=== PATIENT | female | born 1935 | race Caucasian/White ===

== ENCOUNTER 2017-03-28 18:17 | Inpatient (IN) | payer MEDICARE ==
[~2017-03-28] VITALS: Ht 162.6 cm; Wt 62.1 kg
--- NOTE | 2017-03-28 18:40 | NUR ---
BB DAUGHTER FOR COUGH X YESTERDAY, FEVER, PT WAS NOTED CONFUSED BY DAUGHTER THIS MORNING. PATIENT IS A/OX 2. BREATHING EVEN AND UNLABORED. NO SOB. VITALS STABLE. HAS FEVER 101.9. NO DISTRESS NOTED. SAFETY AND COMFORT MEASURES IN PLACE. AWAITING MD ORDERS.
[2017-03-28] MEDS ORDERED: DONE5TAB34 PO (18:48)
[2017-03-28] MEDS ORDERED: ESCI20TA PO (18:48)
[2017-03-28] MEDS ORDERED: CA C1TAB97 PO (18:48)
[2017-03-28] MEDS ORDERED: ASCO500T9 PO (18:48)
[2017-03-28] MEDS ORDERED: CRAN425C6 PO (18:48)
[2017-03-28] MEDS ORDERED: ASPI-1169 PO (18:48)
[2017-03-28] MEDS ORDERED: SIMV20TA6 PO (18:48)
[2017-03-28] MEDS ORDERED: FLUD0.1T PO (18:48)
[2017-03-28] MEDS ORDERED: MAGN250T10 PO (18:48)
--- NOTE | 2017-03-28 18:50 | NUR ---
NEW IV STARTED ON RFA, 20 G. BLOOD DRAWN AND SENT TO LAB. INFLUENZA SWAB OBTAINED AND SENT TO LAB ALSO.
[2017-03-28] MEDS ORDERED: AZTREONAM 2 G in IV NS 0.9% 100 ML IV ONE (19:00)
[2017-03-28] MEDS ORDERED: OSELTAMIVIR PHOSPHATE 75 MG CAPSULE PO ONE (19:00)
[2017-03-28] MEDS ORDERED: IV NS 0.9% 1,000 ML BAG IV ONE (19:00)
[2017-03-28] MEDS ORDERED: ACETAMINOPHEN 325 MG TABLET PO ONE (19:00)
[2017-03-28] MEDS ORDERED: VANCOMYCIN 1 GM in IV D5W 250 ML IV ONE (19:00)
[2017-03-28] MEDS ORDERED: ACETAMINOPHEN 325 MG TABLET ONE (19:12)
[2017-03-28] MEDS ORDERED: OSELTAMIVIR PHOSPHATE 75 MG CAPSULE ONE (19:12)
[2017-03-28 19:14] LABS: BASOPHILS % (AUTO) 0.1 % (0.0-2.0); EOSINOPHILS % (AUTO) 0.4 % (0.0-6.0); HEMATOCRIT 42 % (33-45); HEMOGLOBIN 14.6 g/dL (11.5-14.8); LYMPHOCYTES # (AUTO) 0.6 /CMM (0.8-4.8); LYMPHOCYTES % (AUTO) 10.2 % (20.0-44.0); MEAN CORPUSCULAR HEMOGLOBIN 31 PG (26.0-33.0); MEAN CORPUSCULAR HGB CONC 34 g/dl (31.0-36.0); MEAN CORPUSCULAR VOLUME 89 fL (82-100); MONOCYTES # (AUTO) 0.9 /CMM (0.1-1.30); MONOCYTES % (AUTO) 14.7 % (2.0-12.0); NEUTROPHILS # (AUTO) 4.6 /CMM (1.8-8.9); NEUTROPHILS % (AUTO) 74.6 % (43.0-81.0); PLATELET COUNT (AUTO) 143 /CMM (150-450); RDW COEFFICIENT OF VARIATION 13.7 (11.5-15.0); RED BLOOD CELL COUNT(AUTO) 4.75 MIL/uL (4.0-5.2); WHITE BLOOD COUNT (AUTO) 6.1 K/uL (4.3-11.0)
--- NOTE | 2017-03-28 19:15 | NUR ---
REPORT RECEIVED FROM PEDRITO THOMAS FOR ANTONIETTA.
--- NOTE | 2017-03-28 19:20 | NUR ---
Mario joshi in ED - 03/28/17 at 1935 by ALBERTA 16 FR F/C INSERTED USING PARTS INSPECTOR, 100ML CLEAR URINE OBTAINED AND SENT TO THE LAB.
[2017-03-28 19:23] LABS: INR 0.95 (0.87-1.13); PROTHROMBIN TIME 9.9 SECS (9.5-12.7)
[2017-03-28 19:24] LABS: CALCIUM, SERUM 8.9 mg/dL (8.5-10.1); CARBON DIOXIDE 27 mmol/L (21-32); CHLORIDE 104 mmol/L (98-107); CREATININE 0.9 mg/dL (0.6-1.3); GLUCOSE 117 mg/dL (74-106); POTASSIUM 3.8 mmol/L (3.5-5.1); SODIUM SERUM 138 mmol/L (136-145); UREA NITROGEN, BLOOD 14 mg/dL (7-18)
--- NOTE | 2017-03-28 19:25 | NUR ---
PATIENT MEDICATED PER MD ORDERS.
[2017-03-28 19:29] LABS: ALANINE AMINOTRANSFERASE 42 U/L (12-78); ALBUMIN 3.6 g/dL (3.4-5.0); ALKALINE PHOSPHATASE 82 U/L (46-116); ASPARTATE AMINOTRANSFERASE 41 U/L (15-37); BILIRUBIN,DIRECT 0.1 mg/dL (0.0-0.2); BILIRUBIN,TOTAL 0.5 mg/dL (0.2-1.0); TOTAL PROTEIN, SERUM 6.6 g/dL (6.4-8.2)
--- NOTE | 2017-03-28 19:33 | NUR ---
16 FR felipe catheter inserted per sterile protocal. Immediate output 50 ML of urine, yellow and clear.
[2017-03-28 19:34] LABS: TROPONIN I < 0.017 ng/mL (0.00-0.056)
[2017-03-28] MEDS ORDERED: AZTREONAM 1 G VIAL ONE (19:48)
[2017-03-28] MEDS ORDERED: VANCOMYCIN 1 GM VIAL ONE (19:48)
[2017-03-28 20:36] LABS: APPEARANCE,URINE Clear (CLEAR); BILIRUBIN,URINE Negative (NEGATIVE); BLOOD, URINE Trace-intact Ery/uL (NEGATIVE); COLOR,URINE Yellow (YELLOW); KETONES,URINE Trace (NEGATIVE); LEUKOCYTE ESTERASE ,URINE Negative (NEGATIVE); NITRITE, URINE Negative (NEGATIVE); PROTEIN,URINE Trace mg/dl (NEGATIVE); UGLUCOSE Negative (NEGATIVE); UROBILINOGEN,URINE 0.2 EU/dL (0.2)
[2017-03-28 20:49] LABS: BACTERIA,URINE None seen /HPF (None Seen); MUCUS,URINE Many /LPF (None Seen); SQUAMOUS EPITHELIAL CELL,UR Few /HPF (None Seen); URINE AMORPHOUS URATE Moderate /HPF (None Seen); WBC,URINE 0-2 /HPF (0-3)
--- NOTE | 2017-03-28 20:50 | NUR ---
PT TBA TELE 317-2.
[2017-03-28] MEDS ORDERED: ALBUTEROL FS 2.5 MG/0.5 ML VIAL.NEB NEB PRN (21:00)
[2017-03-28] MEDS ORDERED: ZOLPIDEM TARTRATE 5 MG TABLET PO PRN (21:00)
[2017-03-28] MEDS ORDERED: ACETAMINOPHEN 325 MG TABLET PO PRN (21:00)
[2017-03-28] MEDS ORDERED: HYDROCODONE/APAP 5/325MG 1 EACH TABLET PO PRN (21:00)
[2017-03-28] MEDS ORDERED: ONDANSETRON HCL/PF 4 MG/2 ML VIAL IVP PRN (21:00)
[2017-03-28] MEDS ORDERED: Z GUARD REMEDY 2 OZ OINT TP PRN (21:00)
[2017-03-28] MEDS ORDERED: MAGNESIUM HYDROXIDE 30 ML UDC PO PRN (21:00)
[2017-03-28] MEDS ORDERED: MAG HYDROX/AL HYDROX/SIMETH 30 ML UDC PO PRN (21:00)
--- NOTE | 2017-03-28 21:02 | NUR ---
REPORT GIVEN TO PEDRITO POLLACK FOR ANTONIETTA.
--- NOTE | 2017-03-28 21:27 | NUR ---
PT TRANSPORTED TO [place] [id number] VIA STRETCHER WITH AN RN PER ACLS PROTOCOL. VSS.
[2017-03-28 21:30] VITALS: BP 122/68
--- NOTE | 2017-03-28 21:30 | NUR ---
MOLD SHIFTER OPENING NOTES: RECEIVED PT FROM EMERGENCY DEPARTMENT VIA [facility]. PT IS A/OX2. PT ON 2LPM VIA NC AND IS TOLERATING WELL. PT HAS LANDRUM CATH AND IS ATTACHED TO DRAINAGE BAG WITH YELLOW URINE DRAINING. PT HAS IV ON R WRIST #20G AND IS BEING INFUSED WITH VANCO. CALL LIGHT WITHIN PT'S REACH. BED KEPT IN LOW, LOCKED POSITION, AND SIDE RAILS X 2UP. WILL CONTINUE TO MONITOR PT.
[2017-03-28] MEDS ORDERED: CEFTRIAXONE 1 G VIAL ONE (21:47)
[2017-03-28] MEDS ORDERED: SIMVASTATIN 20 MG TABLET ONE (21:48)
[2017-03-28] MEDS: IV NS 0.9% 1,000 ML IV PRN (21:51)
--- NOTE | 2017-03-28 22:30 | NUR ---
DISPLAY FABRICATOR NOTES: DR. CLARKE AT BEDSIDE WITH DTR (SHAYLEE) AT BEDSIDE.
[2017-03-28] MEDS: CEFTRIAXONE 1 G in IV D5W 50 ML IV SCH (22:45)
--- NOTE | 2017-03-28 23:00 | NUR ---
ONCOLOGY ACCOUNT SPECIALIST NOTES: SPOKE TO DR. CLARKE AND INFORMED HIM THAT DAUGHTER WAS AT BEDSIDE AND PER DAUGHTER, THAT PT NEEDS TO TAKE ASPIRIN 81 MG AND DONEZEPIL 10MG AT NIGHT. GOT ORDER FOR ASPIRIN 81MG PO AND DONEZEPIL 10MG PO. INFORMED HIM THAT DAUGHTER SAID THAT DONEZEPIL 10MG IS WHAT SHE TAKES AND NOT DONEZEPIL . TRICIA OK WITH IT.
[2017-03-28] MEDS ORDERED: ASPIRIN 81 MG TAB.CHEW ONE (23:19)
[2017-03-28] MEDS ORDERED: DONEPEZIL 5 MG TABLET ONE (23:20)
[2017-03-28] MEDS: SIMVASTATIN 20 MG TABLET PO SCH (23:26)
[2017-03-28] MEDS: DONEPEZIL 5 MG TABLET PO SCH (23:26)
[2017-03-28] MEDS ORDERED: ASPIRIN 81 MG TAB.CHEW PO ONE (23:30)
[2017-03-29 04:53] VITALS: BP 150/72
--- NOTE | 2017-03-29 07:10 | NUR ---
PANEL MACHINE SETTER CLOSING NOTES: ALL NEEDS WERE ATTENDED AND ANTICIPATED FOR. PT IS A/OX2. PT REORIENTED MULTIPLE TIMES THROUGHOUT THE SHIFT. PT KEPT CLEAN, DRY, AND COMFORTABLE. PT ON 2LPM VIA NC AND IS TOLERATING WELL. PT HAS LANDRUM CATH AND IS ATTACHED TO DRAINAGE BAG WITH YELLOW URINE DRAINING. LANDRUM OUTPUT WAS 1200ML. PT HAS IV ON R WRIST #20G AND IS BEING INFUSED WITH NS AT 75ML/HR. PT ON TELE BOX AND READING SHOWS SR WITH BBB. CALL LIGHT WITHIN PT'S REACH. BED KEPT IN LOW, LOCKED POSITION, AND SIDE RAILS X 2UP. ENDORSED TO AM NURSE FOR ANTONIETTA.
--- NOTE | 2017-03-29 07:20 | NUR ---
ASSISTANT SIGNAL MAINTAINER OPENING NOTE RECVD REPORT FROM MIN RN. AAO2 ADVANCED DEMENTIA, PLEASANT. LANDRUM. RW 20G PIV NS INFUSING AT 75ML/HR. IV ABX ORDERED. DX PNA. NON LABORED RESP 2LNC 95% O2 SATS. HOB ELEVATED. BED IN LOW LOCKED POSITION. SIDE RAILS UP X 2. CALL LIGHT IN REACH. WILL CONT TO MONITOR CLOSELY.
[2017-03-29 07:47] LABS: BASOPHILS % (AUTO) 0.2 % (0.0-2.0); EOSINOPHILS % (AUTO) 0.3 % (0.0-6.0); HEMATOCRIT 35 % (33-45); HEMOGLOBIN 11.7 g/dL (11.5-14.8); LYMPHOCYTES # (AUTO) 0.7 /CMM (0.8-4.8); LYMPHOCYTES % (AUTO) 14.9 % (20.0-44.0); MEAN CORPUSCULAR HEMOGLOBIN 31 PG (26.0-33.0); MEAN CORPUSCULAR HGB CONC 34 g/dl (31.0-36.0); MEAN CORPUSCULAR VOLUME 92 fL (82-100); MONOCYTES # (AUTO) 0.7 /CMM (0.1-1.30); MONOCYTES % (AUTO) 15.6 % (2.0-12.0); NEUTROPHILS # (AUTO) 3.3 /CMM (1.8-8.9); PLATELET COUNT (AUTO) 115 /CMM (150-450); RDW COEFFICIENT OF VARIATION 15.1 (11.5-15.0); RED BLOOD CELL COUNT(AUTO) 3.74 MIL/uL (4.0-5.2); WHITE BLOOD COUNT (AUTO) 4.7 K/uL (4.3-11.0)
[2017-03-29 08:00] VITALS: BP 161/70
[2017-03-29 08:28] LABS: CALCIUM, SERUM 7.7 mg/dL (8.5-10.1); CARBON DIOXIDE 25 mmol/L (21-32); CHLORIDE 108 mmol/L (98-107); CREATININE 0.7 mg/dL (0.6-1.3); GLUCOSE 103 mg/dL (74-106); MAGNESIUM 1.8 mg/dL (1.8-2.4); PHOSPHORUS 3.1 mg/dL (2.5-4.9); POTASSIUM 3.2 mmol/L (3.5-5.1); SODIUM SERUM 143 mmol/L (136-145); UREA NITROGEN, BLOOD 8 mg/dL (7-18)
[2017-03-29] MEDS ORDERED: Medication Not On Formulary EA (Cranberry Extract (Cranberry) 425 MG) PO SCH (09:00)
[2017-03-29] MEDS: ASCORBIC ACID 500 MG TABLET PO SCH (09:38)
[2017-03-29] MEDS: FLUDROCORTISONE 0.1 MG TABLET PO SCH (09:39)
[2017-03-29] MEDS: ESCITALOPRAM OXALATE (10 MG) 10 MG TABLET PO SCH (09:39)
[2017-03-29] MEDS ORDERED: Magnesium 1GM/D5W 100ML PREMIX 100 ML IV SCH (11:40)
[2017-03-29 12:00] VITALS: BP 140/68
[2017-03-29] MEDS: POTASSIUM CHLORIDE 20 MEQ TAB.PRT.SR PO SCH ×2 (12:37→13:00)
[2017-03-29] MEDS: IV NS 0.9% 1,000 ML IV PRN (12:38)
[2017-03-29 16:00] VITALS: BP 161/74
[2017-03-29] MEDS ORDERED: ASPIRIN 81 MG TAB.CHEW PO SCH (18:00)
[2017-03-29] MEDS ORDERED: DONEPEZIL 5 MG TABLET PO SCH (18:00)
--- NOTE | 2017-03-29 18:05 | NUR ---
MS RN CLOSING NOTES NO ACUTE EVENTS DURING SHIFT. DTR DID NOT WANT STAFF TO AMBULATE PT STATING "SHE IS TOO SLEEPY". PT CONFUSED PER BASELINE. GOOD LANDRUM OUTPUT. PT/OT ORDERS ENTERED. RECVD IV ABX FOR PNEUMONITIS. RUE PIV INTACT AND PATENT. BED IN LOW LOCKED POSITION. CALL LIGHT IN REACH. SIDE RAILS UP X 2. WILL ENDORSE TO MIN RN.
[2017-03-29 20:00] VITALS: BP 150/68
--- NOTE | 2017-03-29 20:00 | NUR ---
MS RN OPENING NOTES: RECEIVED PATIENT IN BED, AWAKE, WITH DAUGHTER AT BEDSIDE. PATIENT WITH IVF OF NS @75ML/HR, ON THE RIGHT WRIST. NO SIGNS OF REDNESS OR PHLEBITIS ON THE SITE. NO COMPLAINS OF PAIN OR DISCOMFORT THIS TIME OF ASSESSMENT. WITH LANDRUM CATH DRAINING YELLOW CLEAR URINE. REALITY ORIENTATION DONE. ASSISTED PATIENT TO THE COMMODE NEEDED. WILL ADMINSITER ORDERED MEDICATIONS. OFFERED ORAL FLUIDS TOLERATED. SAFETY AND FALL PRECAUTIONS OBSERVED. WILL CONTINUE TO MONITOR PATIENT.
[2017-03-29] MEDS: DONEPEZIL 5 MG TABLET PO SCH (22:21)
[2017-03-29] MEDS: ASPIRIN 81 MG TAB.CHEW PO SCH (22:21)
[2017-03-29] MEDS: SIMVASTATIN 20 MG TABLET PO SCH (22:21)
[2017-03-29] MEDS: CEFTRIAXONE 1 G in IV D5W 50 ML IV SCH (22:26)
[2017-03-30] MEDS: IV NS 0.9% 1,000 ML IV PRN ×2 (03:26→22:13)
--- NOTE | 2017-03-30 07:34 | NUR ---
MS RN CLOSING NOTES: SEEN PATIENT IN BED, ASLEEP, EASILY AROUSES. NO COMPLAINS OF PAIN OR DISCOMFORT THIS TIME. NO SIGNS OF RESPIRATORY DISTRESS NOTED THIS TIME OF ASSESSMENT. PATIENT IS NOTED TO BE CONFUSED AT TIMES. REALITY ORIENTATION DONE. IVF ON RIGHT WRIST G#20 NS @75ML/HR, NO SIGNS OF REDNESS OR INFECTION OR PHLEBITIS ON SITE. LANDRUM CATHETER IN PLACE DRAINING YELLOW CLEAR URINE. WILL CONTINUE TO MONITOR PATIENT. WILL ENDORSE PATIENT TO DAY SHIFT NURSE.
[2017-03-30 08:00] VITALS: BP 166/82
--- NOTE | 2017-03-30 08:00 | NUR ---
m/s plant technician: initial assessment received pt in bed awake, alert to name only with confusion and disorientation. no coughing/congestion noted. voiced no discomfort. bed alarm on for safety with call light within reach. will continue to monitor.
[2017-03-30 08:33] LABS: CALCIUM, SERUM 8.3 mg/dL (8.5-10.1); CARBON DIOXIDE 27 mmol/L (21-32); CHLORIDE 103 mmol/L (98-107); CREATININE 0.5 mg/dL (0.6-1.3); GLUCOSE 102 mg/dL (74-106); MAGNESIUM 1.8 mg/dL (1.8-2.4); POTASSIUM 3.2 mmol/L (3.5-5.1); SODIUM SERUM 138 mmol/L (136-145); UREA NITROGEN, BLOOD 6 mg/dL (7-18)
[2017-03-30] MEDS: MULTIVITAMINS,THERAGRAN 1 UDTAB TABLET PO SCH (08:40)
[2017-03-30] MEDS: FLUDROCORTISONE 0.1 MG TABLET PO SCH (08:40)
[2017-03-30] MEDS: ASCORBIC ACID 500 MG TABLET PO SCH (08:40)
[2017-03-30] MEDS: ESCITALOPRAM OXALATE (10 MG) 10 MG TABLET PO SCH (08:40)
[2017-03-30 10:00] VITALS: BP 166/82
[2017-03-30] MEDS: MAGNESIUM OXIDE 400 MG TABLET PO SCH (12:05)
[2017-03-30] MEDS: POTASSIUM CHLORIDE 20 MEQ TAB.PRT.SR PO SCH ×2 (12:05→15:14)
--- NOTE | 2017-03-30 12:20 | NUR ---
m/s digital production artist: md visit seen and examined by jerson (doretha) at this time.
--- NOTE | 2017-03-30 12:40 | NUR ---
m/s shafting worker: notes daughter here at this time and immediately making a scene in front of nurse's station. daughter wants to talk to the doctor and wants all her questions and concerns answered immediately. cn and nurse updated plan of care, but insisted on talking to the doctor. left message to jerson (acnp) re: matter. daughter made aware and will wait in pt's room.
[2017-03-30 12:46] LABS: BASOPHILS % (AUTO) 0.3 % (0.0-2.0); EOSINOPHILS % (AUTO) 0.5 % (0.0-6.0); HEMATOCRIT 38 % (33-45); LYMPHOCYTES # (AUTO) 0.8 /CMM (0.8-4.8); LYMPHOCYTES % (AUTO) 12.8 % (20.0-44.0); MEAN CORPUSCULAR HEMOGLOBIN 31 PG (26.0-33.0); MEAN CORPUSCULAR HGB CONC 35 g/dl (31.0-36.0); MEAN CORPUSCULAR VOLUME 91 fL (82-100); MONOCYTES # (AUTO) 0.8 /CMM (0.1-1.30); MONOCYTES % (AUTO) 11.8 % (2.0-12.0); NEUTROPHILS # (AUTO) 4.9 /CMM (1.8-8.9); NEUTROPHILS % (AUTO) 74.6 % (43.0-81.0); PLATELET COUNT (AUTO) 121 /CMM (150-450); RDW COEFFICIENT OF VARIATION 14.8 (11.5-15.0); RED BLOOD CELL COUNT(AUTO) 4.16 MIL/uL (4.0-5.2); WHITE BLOOD COUNT (AUTO) 6.6 K/uL (4.3-11.0)
--- NOTE | 2017-03-30 12:55 | NUR ---
m/s firer automatic stoker: paula arthur (acnp) at bedside updating and answering daughter's questions and concerns with case management.
--- NOTE | 2017-03-30 13:30 | NUR ---
m/s supervisor mails: notes ua collected via f/c port after clamped for 15mins. emory (chemistry lab instructor) notified for package pick up. felipe catheter removed as ordered, maryam. well and obtained 1050 ml of clear yellow urine. daughter remains at bedside.
--- NOTE | 2017-03-30 15:00 | NUR ---
m/s fire prevention inspector: notes daughter requesting for p.t. tx once more and also wants to talk to jerson again. cn made aware. left message to jerson (acnp). will continue to monitor.
[2017-03-30 15:13] LABS: APPEARANCE,URINE CLEAR (CLEAR); BILIRUBIN,URINE NEGATIVE (NEGATIVE); BLOOD, URINE 3+ Ery/uL (NEGATIVE); COLOR,URINE YELLOW (YELLOW); KETONES,URINE TRACE (NEGATIVE); LEUKOCYTE ESTERASE ,URINE NEGATIVE (NEGATIVE); NITRITE, URINE NEGATIVE (NEGATIVE); PROTEIN,URINE NEGATIVE (NEGATIVE); UGLUCOSE NEGATIVE (NEGATIVE); UROBILINOGEN,URINE 0.2 EU/dL (0.2)
[2017-03-30 15:28] LABS: RBC,URINE 51-80 /HPF (0-2); WBC,URINE 0-2 /HPF (0-3)
[2017-03-30 15:29] LABS: BACTERIA,URINE None seen /HPF (None Seen); SQUAMOUS EPITHELIAL CELL,UR Few /HPF (None Seen)
[2017-03-30 16:00] VITALS: BP 157/86
--- NOTE | 2017-03-30 16:00 | NUR ---
m/s consolidation accountant: notes jerson (doretha) on the phone and handed the phone to daughter per request. cn aware.
--- NOTE | 2017-03-30 16:25 | NUR ---
m/s mandolin repairer: notes p.t. in room with daughter and pt for p.t. tx at this time.
--- NOTE | 2017-03-30 17:00 | NUR ---
m/s business information manager: notes pt not appropriate for therapy at this time. PT will do an assessment PRN or upon change of condition. cn aware. daughter remains at bedside.
--- NOTE | 2017-03-30 18:14 | NUR ---
m/s floor layer: notes pt remains confused and disoriented to time, place, and situation. reality orientation provided prn. pt refused dinner. continue on ivf, infusing well. no apparent distress noted. needs attended. will continue to monitor.
--- NOTE | 2017-03-30 18:27 | NUR ---
m/s chemist inorganic: notes daughter came back and change her mind regarding seroquel med and wants it order for tonight only. cn made aware. jerson (acnp) notified and made aware with stat ekg order. daughter made aware.
--- NOTE | 2017-03-30 20:00 | NUR ---
MS RN OPENING NOTES: RECEIVED PATIENT FROM DAY SHIFT NURSE, ASLEEP IN BED, EASILY AROUSES. NO COMPLAINS OF PAIN OR DISCOMFORT THIS TIME. NO SIGNS OF ANY PAIN OR FACIAL GRIMACE THIS TIME. REALITY ORIENTATION DONE. WITH DAUGHTER AT BEDSIDE. PATIENT WITH IVF ON RIGHT FOREARM G#22 NS FLOWING AT 75ML/HR. NO REDNESS OR SIGNS OF INFECTION ON SITE. PLACED CALL LIGHT WITHIN PATIENT'S REACH. SAFETY AND FALL PRECAUTIONS OBSERVED. WILL CONTINUE TO MONITOR PATIENT.
[2017-03-30 20:32] VITALS: BP 159/71
[2017-03-30] MEDS ORDERED: QUETIAPINE FUMARATE 25 MG TABLET PO ONE (22:00)
[2017-03-30] MEDS: ASPIRIN 81 MG TAB.CHEW PO SCH (22:10)
[2017-03-30] MEDS: SIMVASTATIN 20 MG TABLET PO SCH (22:11)
[2017-03-30] MEDS: DONEPEZIL 5 MG TABLET PO SCH (22:11)
[2017-03-30] MEDS: CEFTRIAXONE 1 G in IV D5W 50 ML IV SCH (22:19)
[2017-03-31 07:02] LABS: CALCIUM, SERUM 8.5 mg/dL (8.5-10.1); CARBON DIOXIDE 27 mmol/L (21-32); CHLORIDE 109 mmol/L (98-107); CREATININE 0.6 mg/dL (0.6-1.3); GLUCOSE 90 mg/dL (74-106); POTASSIUM 3.5 mmol/L (3.5-5.1); SODIUM SERUM 145 mmol/L (136-145); UREA NITROGEN, BLOOD 9 mg/dL (7-18)
--- NOTE | 2017-03-31 07:52 | NUR ---
MS RN CLOSING NOTES: PATIENT IN BED, ASLEEP, AROUSABLE, IVF ON RIGHT FOREARMG#22 NS@ 75ML/HR. NO SIGNS OF INFECTION OR REDNESS ON THE SITE. KEPT PATIENT DRY AND COMFORTABLE. NO COMPLAINS OF PAIN OR DISCOMFORT, NO FACIAL GRIMACE NOTED THIS TIME. WILL CONTINUE TO MONITOR PATIENT FOR MOOD, SAFETY AND BEHAVIOR.
[2017-03-31 08:00] VITALS: BP 163/77
[2017-03-31] MEDS: MAGNESIUM OXIDE 400 MG TABLET PO SCH (09:18)
[2017-03-31] MEDS: ASCORBIC ACID 500 MG TABLET PO SCH (09:18)
[2017-03-31] MEDS: ESCITALOPRAM OXALATE (10 MG) 10 MG TABLET PO SCH (09:18)
[2017-03-31] MEDS: FLUDROCORTISONE 0.1 MG TABLET PO SCH (09:18)
[2017-03-31] MEDS: MULTIVITAMINS,THERAGRAN 1 UDTAB TABLET PO SCH (09:41)
[2017-03-31] MEDS: IV NS 0.9% 1,000 ML IV PRN (12:17)
[2017-03-31] MEDS ORDERED: LEVO750T21 PO (14:14)
[2017-03-31] MEDS ORDERED: GUAI600T53 PO (14:14)
[2017-03-31] MEDS ORDERED: QUET25TA PO (14:14)
[2017-03-31 16:00] VITALS: BP 125/70
--- NOTE | 2017-03-31 19:35 | NUR ---
MS/RETAIL TIRE SALES MANAGER; PT SITTING IN BED WITH DAUGHTER PUTTING ON PT'S DRESS READY FOR DC. HL WAS ALREADY DC BY THE AM SHIFT RN. EXIT CARE SIGNED BY THE DAUGHTER SO WITH BELONGING AND COPIES WERE GIVEN TO THE DAUGHTER. PRESCRIPTION WAS GIVEN TO THE DAUGHTER ALSO BY THE DAY SHIFT RN. HL WAS DC BY THE DAY SHIFT RN .
--- NOTE | 2017-03-31 19:40 | NUR ---
MS/WARDROBE ASSISTANT; PT DC TO HOME WHEELED DOWN TO THE LOBBY ACCOMPANIED BY THE CODING COMPLIANCE SPECIALIST AND PT'S DAUGHTER.
== END 2017-03-31 22:02 | disposition home or self-care (01) | DRG 177 ==
LOC: ER 18:20 → TELE 20:15 → MED 03-29 11:22
PROVIDERS: ADMIT Internal Medicine; ATTEND Internal Medicine
DX: J15.6 Pneumonia due to other Gram-negative bacteria (principal); G92 Toxic encephalopathy; E86.0 Dehydration; G30.9 Alzheimer's disease, unspecified; F02.80 Dementia in other diseases classified elsewhere, unspecified severity, without behavioral disturbance, psychotic disturbance, mood disturbance, and anxiety; F23 Brief psychotic disorder; J15.9 Unspecified bacterial pneumonia; F41.9 Anxiety disorder, unspecified; E78.5 Hyperlipidemia, unspecified; F32.9 Major depressive disorder, single episode, unspecified; Z87.440 Personal history of urinary (tract) infections; J20.9 Acute bronchitis, unspecified; M81.0 Age-related osteoporosis without current pathological fracture
CPT/HCPCS: 36415; 70450-TC; 71045-TC; 80048-TC; 80076-TC; 81000-TC; 83605-TC; 83735-TC; 84100-TC; 84484-TC; 85025-TC; 85730-TC; 87040-TC; 87081-TC; 87086-TC; 87400; 97530-TC; A4606; J0696; J3370; J3490; J7030; J7040; J7060; Z7610